=== PATIENT | female | born 1990 | race African-American/Black ===

== ENCOUNTER 2021-05-07 08:34 | Inpatient (IN) ==
[2021-05-07] MEDS ORDERED: ONDANSETRON 4 MG/2 ML VIAL IV STA ×2 (09:11→10:38)
[2021-05-07] MEDS ORDERED: SODIUM CHLORIDE 0.9% 1,000 ML IV STA (09:11)
[2021-05-07 09:27] LABS: Basophils % 0.1 % (0.0-0.8); Hematocrit 36.1 VOL% (35.7-47.0); Hemoglobin 11.7 GM/DL (12.0-16.0); Immature Granulocytes % 0.9 %; Immature Granulocytes Absolute 0.15 #; Lymphocytes # 0.8 10*3/uL (1.4-4.0); Lymphocytes % 5.2 % (21.3-54.2); Mean Corpuscular HGB Conc 32.4 GM/DL (32-36); Mean Corpuscular Volume 90.5 FL (87-102); Mean Platelet Volume 10.4 FL (9.6-12.0); Neutrophils % 90.8 % (38.7-73.9); Platelet Count 213 T/CUMM (130-400); Red Blood Count 3.99 MC/CUMM (3.8-5.5); Red Cell Distribution Width 13.1 % (9.3-17.3); White Blood Count 16.2 T/CUMM (4-12)
[2021-05-07 09:43] LABS: Albumin 3.3 G/DL (3.4-5.0); Bilirubin,Total 0.7 MG/DL (0.20-1.00); Calcium 8.6 MG/DL (8.5-10.1); Potassium 3.7 MMOL/L (3.5-5.1); Total Protein 7.8 G/DL (6.4-8.2)
[2021-05-07 09:53] LABS: Anisocytosis 1+; Band Neutrophils 18 % (0-10); Eosinophils 1 % (0-10); Lymphocytes 8 % (20-55); Platelet Estimate Normal; Segmented Neutrophils 72 % (50-85); Total Cells Counted 100
[2021-05-07 09:54] LABS: Macrocytosis 1+; Spherocytes Few
[2021-05-07 10:33] LABS: Bacteria,Urine Many /HPF (Few); Bilirubin,Urine Negative (Negative); Blood, Urine Moderate mg/dL (Negative); Glucose,Urine (UA) Negative (Negative); Ketones,Urine 20 mg/dL (Negative); Mucus,Urine Occasional /LPF (Occasional); Nitrite,Urine Positive (Negative); Protein,Urine 100 MG/DL; RBC,Urine 4 /HPF (0-4); Squamous Epithelial Cell,Urine Occasional /HPF (0-10); Urine Appearance Slightly Hazy (Clear); Urine Color Yellow (Yellow); Urine Specific Gravity 1.015 (1.001-1.035)
[2021-05-07] MEDS ORDERED: HYDROmorphone 2 MG/1 ML VIAL IV STA (10:38)
[2021-05-07] MEDS ORDERED: cefTRIAXone 1,000 MG in SODIUM CHLORIDE 0.9% 100 ML IV STA (10:38)
[2021-05-07] MEDS ORDERED: GLUCAGON 1 MG VIAL IM PRN (13:59)
[2021-05-07] MEDS ORDERED: BISACODYL 5 MG TABLET PO PRN (13:59)
[2021-05-07] MEDS ORDERED: PROMETHAZINE 25 MG/1 ML VIAL IM PRN (13:59)
[2021-05-07] MEDS ORDERED: DEXTROSE 50% 25 GM/50 ML SYRINGE IV PRN (14:04)
[2021-05-07] MEDS: ENOXAPARIN 40 MG/0.4 ML SYRINGE SUBCUT SCH (14:14)
[2021-05-07] MEDS: LACTATED RINGERS 1,000 ML IV SCH ×2 (14:15→23:54)
[2021-05-07] MEDS ORDERED: INFLUENZA VIRUS VACCINE 0.5 ML SYRINGE IM ONE (15:55)
[2021-05-07] MEDS: ONDANSETRON 4 MG/2 ML VIAL IV PRN (16:12)
[2021-05-07] MEDS: MORPHINE 2 MG/1 ML SYRINGE IV PRN (19:35)
[2021-05-08] MEDS: ACETAMINOPHEN 325 MG TABLET PO PRN ×2 (03:56→16:40)
[2021-05-08 05:35] LABS: Basophils % 0.2 % (0.0-0.8); Hematocrit 30.7 VOL% (35.7-47.0); Immature Granulocytes % 0.8 %; Immature Granulocytes Absolute 0.09 #; Lymphocytes # 0.9 10*3/uL (1.4-4.0); Lymphocytes % 7.8 % (21.3-54.2); Mean Corpuscular HGB Conc 32.6 GM/DL (32-36); Mean Corpuscular Volume 91.9 FL (87-102); Monocytes % 7.9 % (1.7-12.7); Neutrophils % 83.3 % (38.7-73.9); Platelet Count 163 T/CUMM (130-400); Red Blood Count 3.34 MC/CUMM (3.8-5.5); Red Cell Distribution Width 13.1 % (9.3-17.3); White Blood Count 11.2 T/CUMM (4-12)
[2021-05-08 05:43] LABS: Calcium 8.1 MG/DL (8.5-10.1); Osmolality,Calculated 275.5 MOS/KG (273-304); Potassium 3.5 MMOL/L (3.5-5.1)
[2021-05-08] MEDS: ONDANSETRON 4 MG/2 ML VIAL IV PRN ×2 (08:34→16:35)
[2021-05-08] MEDS: LACTATED RINGERS 1,000 ML IV SCH ×3 (08:34→19:16)
[2021-05-08] MEDS: cefTRIAXone 1,000 MG in SODIUM CHLORIDE 0.9% 100 ML IV SCH (09:48)
[2021-05-08] MEDS: ENOXAPARIN 40 MG/0.4 ML SYRINGE SUBCUT SCH (12:59)
[2021-05-09] MEDS: ONDANSETRON 4 MG/2 ML VIAL IV PRN (00:50)
[2021-05-09] MEDS: MORPHINE 2 MG/1 ML SYRINGE IV PRN (03:45)
[2021-05-09] MEDS: LACTATED RINGERS 1,000 ML IV SCH ×2 (04:44→05:52)
[2021-05-09 05:57] LABS: Basophils % 0.2 % (0.0-0.8); Eosinophils # 0.1 10*3/uL (0.0-0.87); Eosinophils % 0.6 % (0.00-10.9); Hematocrit 31.1 VOL% (35.7-47.0); Hemoglobin 10.3 GM/DL (12.0-16.0); Immature Granulocytes % 0.7 %; Immature Granulocytes Absolute 0.06 #; Lymphocytes # 1.5 10*3/uL (1.4-4.0); Lymphocytes % 18.1 % (21.3-54.2); Mean Corpuscular HGB Conc 33.1 GM/DL (32-36); Mean Corpuscular Volume 91.5 FL (87-102); Mean Platelet Volume 11.5 FL (9.6-12.0); Monocytes % 11.2 % (1.7-12.7); Neutrophils % 69.2 % (38.7-73.9); Platelet Count 175 T/CUMM (130-400); Red Cell Distribution Width 12.8 % (9.3-17.3); White Blood Count 8.2 T/CUMM (4-12)
[2021-05-09 06:10] LABS: Calcium 8.1 MG/DL (8.5-10.1); Osmolality,Calculated 271.8 MOS/KG (273-304); Potassium 3.6 MMOL/L (3.5-5.1)
[2021-05-09] MEDS: cefTRIAXone 1,000 MG in SODIUM CHLORIDE 0.9% 100 ML IV SCH (10:39)
[2021-05-09] MEDS ORDERED: hydrALAZINE 20 MG/1 ML VIAL IV PRN (14:05)
[2021-05-09] MEDS: amLODIPine 10 MG TABLET PO SCH (14:30)
[2021-05-09] MEDS: ENOXAPARIN 40 MG/0.4 ML SYRINGE SUBCUT SCH (21:53)
[2021-05-10] MEDS: amLODIPine 10 MG TABLET PO SCH (08:11)
[2021-05-10] MEDS: cefTRIAXone 1,000 MG in SODIUM CHLORIDE 0.9% 100 ML IV SCH (08:12)
[2021-05-10] MEDS: ACETAMINOPHEN 325 MG TABLET PO PRN (11:03)
[2021-05-10] MEDS: lisinopriL 20 MG TABLET PO SCH (16:57)
[2021-05-10] MEDS: ENOXAPARIN 40 MG/0.4 ML SYRINGE SUBCUT SCH (21:09)
[2021-05-11] MEDS: ACETAMINOPHEN 325 MG TABLET PO PRN (01:14)
[2021-05-11 07:47] VITALS: BP 148/77
[2021-05-11] MEDS: lisinopriL 20 MG TABLET PO SCH (08:17)
[2021-05-11] MEDS: amLODIPine 10 MG TABLET PO SCH (08:18)
[2021-05-11] MEDS: cefTRIAXone 1,000 MG in SODIUM CHLORIDE 0.9% 100 ML IV SCH (08:51)
== END 2021-05-11 10:10 | disposition home or self-care (01) | DRG 690 ==
LOC: N.ED 08:34 → SUATTDRO 13:59 → N.EDINP 13:59 → N.5E 15:38
PROVIDERS: ADMIT Internal Medicine; ATTEND Internal Medicine